=== PATIENT | male | born 1960 | race Two or more races ===

== ENCOUNTER 2017-02-27 19:23 | Emergency (ER) | payer OTHER ==
[~2017-02-27] VITALS: Ht 175.3 cm; Wt 86.2 kg
--- NOTE | 2017-02-27 19:32 | NUR ---
PATIENT WALKED INTO ER C/O LEFT FINGER LACERATION ABOUT 30MINS PRIOR TO ARRIVAL. PATEINT STATES WAS CUTTING TAP WITH FILAMENT SHAPER AND LACERATED LEFT RING FINGER. PT IS ALERT, ORIENTED X 4, NO RESP DISTRESSS NOTED OR REPORTED UPON ASSESSMENT... MD AT BEDSIDE...
--- NOTE | 2017-02-27 20:00 | NUR ---
ERMD IN ROOM WITH PT, FOR SUTURE ON LEFT HAND RING FINGER, PT TOLERATED PROCEDURE WITH NO COMPLAINTS, PT REFUSED TETANUS, STATES HE ALREADY HAD HIS BOOSTER SHOT...
--- NOTE | 2017-02-27 20:20 | NUR ---
Patient discharged to home in stable conditon. Written and verbal after care instructions given. Patient verbalizes understanding of instructions. Pt walked out of ER unassisted with partner and belongings at side...
[2017-02-27 20:27] VITALS: BP 131/79
== END 2017-02-27 20:28 | disposition home or self-care (01) ==
LOC: ER 19:29
DX: S61.215A Laceration without foreign body of left ring finger without damage to nail, initial encounter (principal); F10.20 Alcohol dependence, uncomplicated; W45.8XXA Other foreign body or object entering through skin, initial encounter; Y93.89 Activity, other specified; Y99.8 Other external cause status; Y92.89 Other specified places as the place of occurrence of the external cause
CPT/HCPCS: 12001; 99283; A4663

== ENCOUNTER 2017-04-01 16:23 | Emergency (ER) | payer OTHER ==
[~2017-04-01] VITALS: Ht 175.3 cm; Wt 83.9 kg
--- NOTE | 2017-04-01 16:41 | NUR ---
Patient discharged to home in stable conditon. Written and verbal after care instructions given. Patient verbalizes understanding of instructions.
[2017-04-01] MEDS ORDERED: LORAZEPAM 0.5 MG TABLET PO ONE (16:45)
[2017-04-01] MEDS ORDERED: LORAZEPAM 1 MG TABLET ONE (16:51)
== END 2017-04-01 16:42 | disposition home or self-care (01) ==
LOC: ER 16:25
DX: F41.9 Anxiety disorder, unspecified (principal); F10.20 Alcohol dependence, uncomplicated
CPT/HCPCS: A4663